=== PATIENT | female | born 1995 | race Caucasian/White ===

== ENCOUNTER 2016-12-16 13:36 | Emergency (ER) | payer BC ==
[~2016-12-16] VITALS: Ht 167.6 cm; Wt 81.2 kg
[2016-12-16] MEDS ORDERED: ALBUTEROL SULFATE 2.5 MG/3 ML NEBU. NEB ONE (14:30)
[2016-12-16] MEDS ORDERED: IPRATRPIUM/ALBUTEROL 0.5/2.5MG 3 ML NEBU. NEB ONE (14:30)
--- NOTE | 2016-12-16 14:42 | PHYS DOC ---
Adult General Chief Complaint Chief Complaint: COUGH HPI HPI Patient is a 21 year old female who presents with complaint of cough and shortness of breath. Patient states her symptoms have been present over the past 2 weeks. The patient states that she had pneumonia approximately 5 months ago and states that she feels very similar to how she felt when she was diagnosed with pneumonia at that time. The patient states she's had history of Hodgkin's lymphoma and has had multiple recurrences. Patient states she was last treated 5 years ago for her second recurrence and stated that treatment was discontinued after she started developing neuropathy while taking an experimental drug at that time. Patient continues to follow with primary care at [facility]. Patient states that 2 weeks ago she was having fevers but denies any recent fevers. Patient states that she's had continued cough and worsening shortness of breath over the past few days. Review of Systems Review of Systems Constitutional: Denies fever or chills [] Eyes: Denies change in visual acuity, redness, or eye pain [] HENT: Denies nasal congestion or sore throat [] Respiratory: Cough, shortness of breath[] Cardiovascular: Denies substernal chest pain or edema[] GI: Denies abdominal pain, nausea, vomiting, bloody stools or diarrhea [] : Denies dysuria or hematuria [] Musculoskeletal: Denies back pain or joint pain [] Integument: Denies rash or skin lesions [] Neurologic: Denies headache, focal weakness or sensory changes [] Current Medications Current Medications Current Medications Medications (Trade) Dose Ordered Sig/Uyen Start Time Stop Time Status Last Admin Dose Admin Albuterol Sulfate (Ventolin) 2.5 mg 1X ONCE 12/16/16 14:30 12/16/16 14:31 UNV Albuterol/ Ipratropium (Duoneb) 3 ml 1X ONCE 12/16/16 14:30 12/16/16 14:31 UNV Physical Exam Physical Exam Constitutional: Alert, afebrile, appears in minimal discomfort. [] HENT: Normocephalic, atraumatic, bilateral external ears normal, oropharynx moist, no oral exudates, nose normal. [] Eyes: PERRLA, EOMI, conjunctiva normal, no discharge. [] Neck: Normal range of motion, no tenderness, supple, no stridor. [] Cardiovascular:Heart rate regular rhythm, no murmur [] Lungs & Thorax: Mild restriction of air movement bilaterally, expiratory wheezes bilaterally, no rales[] Abdomen: Bowel sounds normal, soft, no tenderness, no masses, no pulsatile masses. [] Skin: Warm, dry, no erythema, no rash. [] Back: No tenderness, no CVA tenderness. [] Extremities: No tenderness, no cyanosis, no clubbing, ROM intact, no edema. [] Neurologic: Alert and oriented X 3, normal motor function, normal sensory function, no focal deficits noted. [] Current Patient Data Vital Signs Temperature 98.4, heart rate 99, oxygen saturation 95% on room air, blood pressure 127/83, respirations 20 Lab Results Laboratory Tests Test 12/16/16 14:42 12/16/16 14:45 12/16/16 15:03 White Blood Count 11.4 x10^3/uL Red Blood Count 5.01 x10^6/uL Hemoglobin 14.5 g/dL Hematocrit 42.5 % Mean Corpuscular Volume 85 fL Mean Corpuscular Hemoglobin 29 pg Mean Corpuscular Hemoglobin Concent 34 g/dL Red Cell Distribution Width 15.2 % Platelet Count 354 x10^3/uL Neutrophils (%) (Auto) 71 % Lymphocytes (%) (Auto) 21 % Monocytes (%) (Auto) 6 % Eosinophils (%) (Auto) 1 % Basophils (%) (Auto) 1 % Neutrophils # (Auto) 8.2 x10^3uL Lymphocytes # (Auto) 2.4 x10^3/uL Monocytes # (Auto) 0.7 x10^3/uL Eosinophils # (Auto) 0.1 x10^3/uL Basophils # (Auto) 0.1 x10^3/uL Sodium Level 137 mmol/L Potassium Level 3.2 mmol/L Chloride Level 101 mmol/L Carbon Dioxide Level 28 mmol/L Anion Gap 8 Blood Urea Nitrogen 11 mg/dL Creatinine 1.0 mg/dL Estimated GFR (Cockcroft-Gault) 70.7 BUN/Creatinine Ratio 11 Glucose Level 126 mg/dL Calcium Level 9.7 mg/dL Total Bilirubin 0.4 mg/dL Aspartate Amino Transf (AST/SGOT) 26 U/L Alanine Aminotransferase (ALT/SGPT) 27 U/L Alkaline Phosphatase 108 U/L Total Protein 8.2 g/dL Albumin 4.2 g/dL Albumin/Globulin Ratio 1.1 Urine Collection Type Unknown Urine Color Laila Urine Clarity Cloudy Urine pH 5.5 Urine Specific [place] >=1.030 Urine Protein 30 mg/dl Urine Glucose (UA) Neg mg/dL Urine Ketones (Stick) 40 mg/dL Urine Blood Neg Urine Nitrite Neg Urine Bilirubin Neg Urine Urobilinogen Dipstick 1 mg/dL Urine Leukocyte Esterase Neg Urine RBC 1-2 /HPF Urine WBC 5-10 /HPF Urine Squamous Epithelial Cells Mod /LPF Urine Bacteria 0 /HPF Urine Mucus Marked /LPF Bedside Urine HCG, Qualitative hcg negative Current Medications Medications (Trade) Dose Ordered Sig/Uyen Route PRN Reason Start Time Stop Time Status Last Admin Dose Admin Albuterol/ Ipratropium (Duoneb) 3 ml 1X ONCE NEB 12/16/16 14:30 12/16/16 15:20 DC 12/16/16 15:00 Albuterol Sulfate (Ventolin) 2.5 mg 1X ONCE NEB 12/16/16 14:30 12/16/16 15:20 DC 12/16/16 15:00 Dexamethasone Sodium Phosphate (Decadron) 10 mg 1X ONCE IM 12/16/16 15:45 12/16/16 15:46 UNV EKG EKG Interpreted by me: Heart rate 122, sinus tachycardia, normal axis, normal intervals, no acute ST/T-wave abnormalities present[] Radiology/Procedures Radiology/Procedures Two-view chest x-ray interpreted by me: No infiltrates, no effusions, normal cardiac silhouette[] Course & Med Decision Making Course & Med Decision Making Pertinent Labs and Imaging studies reviewed. (See chart for details) The patient was given DuoNeb and albuterol treatments in the emergency department with reported improvement in symptoms. The patient's heart rate was noted to be elevated from triage which is likely attributed to administration of albuterol and DuoNeb. I spoke with Dr. Abarca of pulmonology who stated that administering steroids to the patient would not be contraindicated given her history of lymphoma. Patient given Decadron 10 mg IM. Patient will continue on Medrol Dosepak, azithromycin, and albuterol for outpatient treatment. Advise follow-up in 3 days with primary doctor for reevaluation and return emergency department for any worsening symptoms. Patient voiced understanding and in agreement with treatment plan. Dragon Disclaimer Dragon Disclaimer This chart was dictated in whole or in part using Voice Recognition software in a busy, high-work load, and often noisy Emergency Department environment. It may contain unintended and wholly unrecognized errors or omissions. Departure Departure: Impression: Primary Impression: Cough Additional Impression: Reactive airway disease Disposition: 01 HOME, SELF-CARE Condition: IMPROVED Referrals: NON,STAFF (PCP) Patient Instructions: Cough, Adult Additional Instructions: Follow-up to primary doctor in 3-5 days for reevaluation. Return to the emergency department for any worsening symptoms. Scripts Azithromycin (AZITHROMYCIN TABLET) 250 Mg Tablet 1 PKG PO UD, #6 TAB Prov: CADE DALTON MD 12/16/16 Albuterol Sulfate (PROVENTIL HFA INHALER) 6.7 Gm Hfa.aer.ad 1 PUFF IH Q4HRS Y for SHORTNESS OF BREATH, #1 INHALER 0 Refills Prov: CADE DALTON MD 12/16/16 Methylprednisolone (MEDROL) 4 Mg Tab.ds.pk 1 PKG PO UD, #1 PKG Prov: CADE DALTON MD 12/16/16 Problem Qualifiers Additional Impression: Reactive airway disease Asthma severity: moderate Asthma persistence: persistent Asthma complication type: uncomplicated Qualified Codes: J45.40 - Moderate persistent asthma, uncomplicated CADE DALTON MD Dec 16, 2016 14:42
[2016-12-16 14:52] LABS: BASO # 0.1 x10^3/uL (0.0-0.2); BASO % 1 % (0-3); EOS # 0.1 x10^3/uL (0.0-0.7); EOS % 1 % (0-3); HEMATOCRIT 42.5 % (36.0-47.0); HEMOGLOBIN 14.5 g/dL (12.0-15.5); LYMPH # 2.4 x10^3/uL (1.0-4.8); LYMPH % 21 % (24-48); MEAN CORPUSCULAR HEMOGLOBIN 29 pg (25-35); MEAN CORPUSCULAR HGB CONC 34 g/dL (31-37); MEAN CORPUSCULAR VOLUME 85 fL (79-100); MONO # 0.7 x10^3/uL (0.0-1.1); MONO % 6 % (0-9); NEUT # 8.2 x10^3uL (1.8-7.7); NEUT % 71 % (31-73); PLATELET COUNT 354 x10^3/uL (140-400); RED BLOOD COUNT 5.01 x10^6/uL (3.50-5.40); RED CELL DISTRIBUTION WIDTH 15.2 % (11.5-14.5); WHITE BLOOD COUNT 11.4 x10^3/uL (4.0-11.0)
[2016-12-16 15:11] LABS: ALBUMIN 4.2 g/dL (3.4-5.0); ALBUMIN/GLOBULIN RATIO 1.1 (1.0-1.7); CALCIUM 9.7 mg/dL (8.5-10.1); GFR 70.7; POTASSIUM 3.2 mmol/L (3.5-5.1); TOTAL BILIRUBIN 0.4 mg/dL (0.2-1.0); TOTAL PROTEIN 8.2 g/dL (6.4-8.2)
[2016-12-16 15:18] LABS: COLOR,URINE AMBER
[2016-12-16 15:19] LABS: BACTERIA,URINE 0 /HPF (0-FEW); BILIRUBIN,URINE NEG (NEG); CLARITY,URINE CLOUDY; GLUCOSE,URINE NEG (NEG); NITRITE,URINE NEG (NEG); SQUAMOUS EPITHELIAL CELL,UR MOD /LPF; UROBILINOGEN,URINE 1 mg/dL (0.2 mg/dL)
[2016-12-16] MEDS ORDERED: METH4TAB2 PO (15:59)
[2016-12-16] MEDS ORDERED: AZIT250T6 PO (15:59)
[2016-12-16] MEDS ORDERED: ALBU6.7H IH (15:59)
[2016-12-16 16:00] VITALS: BP 136/70
[2016-12-16] MEDS ORDERED: DEXAMETHASONE SOD PHOS 10 MG/ML VIAL IM ONE (16:00)
--- NOTE | 2016-12-16 16:07 | RAD ---
Examination: 2 views of chest History: History of shortness of breath Comparison: None available Findings: The cardiomediastinal silhouette grossly appears unremarkable. There is no acute infiltrate or visualized pneumothorax identified. Impression: No acute cardiopulmonary findings.
--- NOTE | 2016-12-16 19:16 | EKG ---
[address] [address] Test Date: 2016-12-16 Test Time: 15:34:54 Pat Name: ANJEL AGUILLON Department: Room: Gender: F Hotel Server: : [id number] Requested By: CADE DALTON Order Number: [id number] Reading MD: Devyn Velásquez Measurements Intervals [place] Rate: 122 P: -142 TX: 136 QRS: 72 QRSD: 96 T: 38 QT: 290 QTc: 414 Interpretive Statements SINUS TACHYCARDIA ST & T ABNORMALITY, CONSIDER INFERIOR ISCHEMIA OR LEFT VENTRICULAR STRAIN Electronically Signed On 12-22-2016 8:18:07 CDT by Devyn Velásquez
== END 2016-12-16 16:15 | disposition home or self-care (01) ==
LOC: ER 13:36
DX: J45.40 Moderate persistent asthma, uncomplicated (principal); Z85.72 Personal history of non-Hodgkin lymphomas
CPT/HCPCS: 36415; 71020; 80053; 81001; 81025; 85025; 87086; 93005; 94250; 94640; 96372; 99285; J1100; J7613; J7620

== ENCOUNTER 2018-08-20 15:01 | Emergency (ER) | payer BC, MEDICARE ==
[~2018-08-20] VITALS: Ht 167.6 cm; Wt 81.2 kg
[~2018-08-20 15:01] MED LIST: ALBU2.5V8 IH; AZIT250T6 PO; METH4TAB2 PO
[2018-08-20 15:23] VITALS: BP 108/64
--- NOTE | 2018-08-20 15:48 | PHYS DOC ---
Past History Past Medical History: Arthritis, Cancer, Pneumonia Past Surgical History: Cancer Surgery Alcohol Use: None Drug Use: None Adult General Chief Complaint Chief Complaint: TEST HPI HPI 23-year-old female presents with concern for . She is also having diffuse abdominal pain and has not had a menstrual period in 2 months. The patient has had a history of Hodgkin's lymphoma. She has not had a menstrual period last 2 months. She also has been having abdominal cramping and bloating. She is eating more. She had an ultrasound 15 days ago that was negative for p regnancy. She's had multiple home tests were negative. She was told by some physician that her urine test might not be accurate. She wants to know if she is and if not months going on her abdomen. She denies fever or chills. She has had some nausea, but no vomiting or diarrhea or constipation. Review of Systems Review of Systems Constitutional: Denies fever or chills [] Eyes: Denies change in visual acuity, redness, or eye pain [] HENT: Denies nasal congestion or sore throat [] Respiratory: Denies cough or shortness of breath [] Cardiovascular: No additional information not addressed in HPI [] GI: Mild abdominal pain, nausea. Denies vomiting, bloody stools or diarrhea [] : Denies dysuria or hematuria [] Musculoskeletal: Denies back pain or joint pain [] Integument: Denies rash or skin lesions [] Neurologic: Denies headache, focal weakness or sensory changes [] Endocrine: Denies polyuria or polydipsia [] All other systems were reviewed and found to be within normal limits, except as documented in this note. Allergies Allergies Allergies Coded Allergies Type Severity Reaction Last Updated Verified No Known Drug Allergies 12/16/16 No Physical Exam Physical Exam Constitutional: Well developed, well nourished, no acute distress, non-toxic appearance. [] HENT: Normocephalic, atraumatic, bilateral external ears normal, oropharynx moist, no oral exudates, nose normal. [] Eyes: PERRLA, EOMI, conjunctiva normal, no discharge. [] Neck: Normal range of motion, no tenderness, supple, no stridor. [] Cardiovascular:Heart rate regular rhythm, no murmur [] Lungs & Thorax: Bilateral breath sounds clear to auscultation [] Abdomen: Bowel sounds normal, soft, no tenderness, no masses, no pulsatile masses. [] Skin: Warm, dry, no erythema, no rash. [] Back: No tenderness, no CVA tenderness. [] Extremities: No tenderness, no cyanosis, no clubbing, ROM intact, no edema. [] Neurologic: Alert and oriented X 3, normal motor function, normal sensory function, no focal deficits noted. [] Psychologic: Affect normal, judgement normal, mood anxious. [] Current Patient Data Vital Signs Vital Signs Date Time Temp Pulse Resp B/P (MAP) Pulse Ox O2 Delivery O2 Flow Rate FiO2 08/20/18 15:23 98.2 71 20 100 Room Air EKG EKG [] Radiology/Procedures Radiology/Procedures [] Course & Med Decision Making Course & Med Decision Making Pertinent Labs and Imaging studies reviewed. (See chart for details) The patient's urine is negative. Her serum is 0. I had a long conversation with the patient and she was just hoping she might be . She has refused the CT scan. She has CT later this week to look for recurrence of her cancer. She is comfortable with going home at this time without a further workup. She will discuss fertility with her [employer] and oncologist. She is stable for discharge at this time. [] Dragon Disclaimer Dragon Disclaimer This electronic medical record was generated, in whole or in part, using a voice recognition dictation system. Departure Departure: Impression: Primary Impression: Negative test Disposition: HOME, SELF-CARE Condition: STABLE Referrals: MARVIN WISDOM (PCP) ISMAEL PRIETO DO Aug 20, 2018 15:48
[2018-08-20 16:08] LABS: BACTERIA,URINE FEW /HPF (0-FEW); BILIRUBIN,URINE NEG (NEG); CLARITY,URINE HAZY; COLOR,URINE YELLOW; GLUCOSE,URINE NEG (NEG); NITRITE,URINE NEG (NEG); RBC,URINE 0 /HPF (0-2); SQUAMOUS EPITHELIAL CELL,UR OCC /LPF; UROBILINOGEN,URINE 0.2 mg/dL (0.2 mg/dL)
[2018-08-20 16:13] LABS: BASO % 1 % (0-3); EOS # 0.2 x10^3/uL (0.0-0.7); EOS % 4 % (0-3); HEMATOCRIT 40.9 % (36.0-47.0); HEMOGLOBIN 13.4 g/dL (12.0-15.5); LYMPH # 1.9 x10^3/uL (1.0-4.8); LYMPH % 32 % (24-48); MEAN CORPUSCULAR HEMOGLOBIN 30 pg (25-35); MEAN CORPUSCULAR HGB CONC 33 g/dL (31-37); MEAN CORPUSCULAR VOLUME 91 fL (79-100); MONO # 0.6 x10^3/uL (0.0-1.1); MONO % 9 % (0-9); NEUT # 3.3 x10^3uL (1.8-7.7); NEUT % 55 % (31-73); PLATELET COUNT 190 x10^3/uL (140-400); RED BLOOD COUNT 4.51 x10^6/uL (3.50-5.40); RED CELL DISTRIBUTION WIDTH 15.8 % (11.5-14.5); WHITE BLOOD COUNT 6.1 x10^3/uL (4.0-11.0)
[2018-08-20 16:26] LABS: ALBUMIN 3.8 g/dL (3.4-5.0); ALBUMIN/GLOBULIN RATIO 1.1 (1.0-1.7); CALCIUM 8.9 mg/dL (8.5-10.1); CREATININE 0.7 mg/dL (0.6-1.0); GFR 104.6; POTASSIUM 3.9 mmol/L (3.5-5.1); TOTAL BILIRUBIN 0.2 mg/dL (0.2-1.0); TOTAL PROTEIN 7.2 g/dL (6.4-8.2)
[2018-08-20] MEDS ORDERED: IOHEXOL 300 MG/ML 75 ML VIAL. IV ONE (16:30)
== END 2018-08-20 17:30 | disposition home or self-care (01) ==
LOC: ER 15:01
DX: Z32.02 Encounter for pregnancy test, result negative (principal); R10.84 Generalized abdominal pain; M19.90 Unspecified osteoarthritis, unspecified site
CPT/HCPCS: 36415; 80053; 81001; 81025; 84702; 85025; 87086; 99284

== ENCOUNTER 2020-08-26 17:53 | Emergency (ER) | payer BC, OTHER, MEDICAID ==
[~2020-08-26] VITALS: Ht 167.6 cm; Wt 113.6 kg
[2020-08-26 18:02] VITALS: BP 131/71
[2020-08-26] MEDS ORDERED: ACETAMINOPHEN 500 MG TABLET PO ONE (18:45)
[2020-08-26] MEDS ORDERED: CYCL-331 PO (18:53)
--- NOTE | 2020-08-26 18:54 | PHYS DOC ---
Past History Past Medical History: Arthritis, Cancer, Pneumonia Past Surgical History: Cancer Surgery Alcohol Use: None Drug Use: None Adult General Chief Complaint Chief Complaint: BACK PAIN - NO INJURY HPI HPI Patient is a 25-year-old female who presents with a chief complaint of low back pain. States that earlier in the day she picked up her child and felt a twinge in her low back which is caused some dull and achy pain, 7 out of 10, with no radiation. States she had not tried anything for the pain. Denies any numbness/weakness/tingling. Denies any urinary or stool incontinence or retention. States she is able to sit, stand and walk but causes discomfort. Denies any other recent traumas, illnesses. Review of Systems Review of Systems Review of systems otherwise unremarkable except noted in HPI Allergies Allergies Allergies Coded Allergies Type Severity Reaction Last Updated Verified No Known Drug Allergies 12/16/16 No Physical Exam Physical Exam Constitutional: Well developed, well nourished, no acute distress, non-toxic appearance. [] HENT: Normocephalic, atraumatic, Eyes: conjunctiva normal, no discharge. [] Neck: Normal range of motion, no tenderness, supple, no stridor. [] Cardiovascular:Heart rate regular rhythm, no murmur [] Lungs & Thorax: Bilateral breath sounds clear to auscultation [] Abdomen: Bowel sounds normal, soft, no tenderness, no masses, no pulsatile masses. [] Skin: Warm, dry, no erythema, no rash. [] Back: Mild generalized bilateral lumbar paraspinal muscle tenderness, no obvious deformities, bruising or step-offs, no CVA tenderness. [] Extremities: No tenderness, no cyanosis, no clubbing, ROM intact, no edema. [] Neurologic: Alert and oriented X 3, normal motor function, normal sensory fun ction, able to sit, stand and walk without issue, no focal deficits noted. [] Psychologic: Affect normal, judgement normal, mood normal. [] Current Patient Data Vital Signs Vital Signs Date Time Temp Pulse Resp B/P (MAP) Pulse Ox O2 Delivery O2 Flow Rate FiO2 08/26/20 18:02 98.3 82 16 131/71 98 Room Air Lab Results Laboratory Tests Test 08/26/20 18:24 POC Urine HCG, Qualitative hcg negative (Negative) EKG EKG [] Radiology/Procedures Radiology/Procedures [] Heart Score C/O Chest Pain: No Risk Factors: Risk Factors: DM, Current or recent (<one month) smoker, HTN, HLP, family history of CAD, obesity. Risk Scores: Risk Factors: DM, Current or recent (<one month) smoker, HTN, HLP, family history of CAD, obesity. Course & Med Decision Making Course & Med Decision Making Patient is a 25-year-old female who presents with low back pain Vital signs not concerning. Physical exam noted above. No focal neurologic deficits appreciated. Given pain management here in the emergency department. Discussed pain management and course probabilities at home. Advised to follow-up in the morning with her primary care physician and set up a follow-up visit for reevaluation as soon as possible. Gave return precautions to the ED. Patient grateful, verbalized understanding and agreed with plan of discharge. [] Dragon Disclaimer Dragon Disclaimer This electronic medical record was generated, in whole or in part, using a voice recognition dictation system. Departure Departure: Impression: Primary Impression: Low back pain Additional Impression: Muscle strain Disposition: 01 HOME / SELF CARE / HOMELESS Condition: GOOD Referrals: EDGARDO CASAS MD (PCP) Patient Instructions: Low Back Sprain with Rehab-Sports[facility], RICE - Routine Care for Injuries Additional Instructions: Thank you for coming into the emergency department tonight and allowing us to take care of you. Please read all of the attached information very carefully to go back over what we discussed. Please begin a Tylenol, ibuprofen, Benadryl, ice and Lidoderm patch regimen at home as discussed and demonstrated. Please call your primary care physician first thing in the morning to update on ED visit and set up a follow-up visit as soon as you can discuss need for further management. Please come back to the emergency department immediately with new or concerning symptoms as discussed. Scripts Cyclobenzaprine Hcl (CYCLOBENZAPRINE HCL) 10 Mg Tablet 1 TAB PO BID PRN for MUSCLE SPASMS for 5 Days, #10 TAB Prov: JOSE MARIA BOBBY MD 08/26/20 Problem Qualifiers JOSE MARIA BOBBY MD Aug 26, 2020 18:54
[2020-08-26] MEDS ORDERED: KETOROLAC 30 MG/ML VIAL. IM ONE (19:00)
[2020-08-26] MEDS ORDERED: oxyCODONE IR 5 MG TABLET PO PRN (19:00)
[2020-08-26] MEDS ORDERED: LIDOCAINE (700MG/PATCH) PATCH. TD SCH (19:00)
[2020-08-26] MEDS ORDERED: PATCH REMOVAL. MC SCH (21:00)
== END 2020-08-26 19:16 | disposition home or self-care (01) ==
LOC: ER 17:53
DX: S39.012A Strain of muscle, fascia and tendon of lower back, initial encounter (principal); M19.90 Unspecified osteoarthritis, unspecified site; X50.9XXA Other and unspecified overexertion or strenuous movements or postures, initial encounter; Y93.89 Activity, other specified; Y92.89 Other specified places as the place of occurrence of the external cause; Y99.8 Other external cause status
CPT/HCPCS: 81025; 96372; 99284; J1885